=== PATIENT | male | born 1930 | race Caucasian/White ===

== ENCOUNTER 2016-09-10 14:00 | Inpatient (IN) | payer MEDICARE, BC ==
[~2016-09-10] VITALS: Ht 172.7 cm; Wt 72.5 kg
--- NOTE | ~2016-09-10 | DS ---
PATIENT'S NAME: CINDY WINKLER [facility] AGE: 86 Y [address] ROOM: [place] [address] LOCATION: [facility] ADMIT DATE: 09/16/2016 Discharge Summary DISCHARGE DATE: 09/18/2016 FAMILY PHYSICIAN: Venkat Bernstein MD ATTENDING PHYSICIAN: Benson Jaquez PRIMARY DIAGNOSIS: Degenerative joint disease of the right knee. SECONDARY DIAGNOSES: 1. Gastroesophageal reflux disease. 2. Preexisting right leg sciatica. 3. Chronic congestive heart failure. 4. Hypertension. 5. Coronary artery disease. PROCEDURE PERFORMED: Right total knee arthroplasty. HISTORY: The patient is an 86-year old male, who presents with advanced right knee degenerative joint disease and associated severely compromised activities of daily living. The patient has decided to proceed with total knee arthroplasty after having been thoroughly counseled regarding the risks, benefits, limitations, and alternatives. Please refer to the outpatient clinic notes and admission history and physical for this patient. HOSPITAL COURSE: The patient underwent a right total knee arthroplasty on 09/16/2016 without complications. Spinal anesthesia plus adductor canal block plus periarticular local anesthesia was utilized. The patient received 24 hours of perioperative prophylactic antibiotics and remained hemodynamically stable, neurovascularly intact throughout the entire hospital course. The postoperative prophylactic deep venous thrombosis prophylaxis consisted of Xarelto, early mobilization and pneumatic compression devices. Daily physical therapy for gait training, transfer training range of motion and quadriceps isometric exercises were received. The patient progressed well in physical therapy. On the date of discharge, 09/18/2016, the incision at the knee was healing well and showed no signs of infection. DISPOSITION: Home. DISCHARGE ACTIVITY: The patient is to bear weight as tolerated with range of motion and quadriceps isometric exercises as instructed. The operative extremity is to be elevated at least 90% of the day. There is to be sterile 4x4 gauze dressings to the incision daily. Dr. Jaquez is to be notified immediately if there is any increased pain, fevers, chills, erythema, or drainage. PATIENT'S NAME: CINDY WINKLER [facility] AGE: 86 Y [address] ROOM: [place] [address] LOCATION: [facility] ADMIT DATE: 09/16/2016 Discharge Summary DISCHARGE DATE: 09/18/2016 FAMILY PHYSICIAN: Venkat Bernstein MD ATTENDING PHYSICIAN: Benson Jaquez DISCHARGE MEDICATIONS: 1. Xarelto 10 mg 1 tablet p.o. daily for 12 days for postop DVT prophylaxis. 2. Oxycodone 5 mg 1 to 2 tablets p.o. every 4 hours p.r.n. for pain. 3. Diazepam 2 mg 1 tablet p.o. every night at bedtime. He is then instructed to continue all his other pre-admission medications as instructed by his internal medicine doctor. FOLLOWUP: Followup appointment is to be with VENECIA Jacob, on 09/23/2016 for his initial postoperative evaluation with x-rays of the right knee and suture removal at that time. MAHSA GARCIA PA-C FOR BENSON JAQUEZ MD SMW/modl /[id number] d: 09/24/16 0503 t: 10/12/16 1202, DISCHARGE SUMMARY
--- NOTE | ~2016-09-10 | OR ---
PATIENT'S NAME: CINDY DILLARD [facility] AGE: 86 Y [address] ROOM: [place] [address] LOCATION: [facility] ADMIT DATE: 09/16/2016 OR/Procedure Report DISCHARGE DATE: FAMILY PHYSICIAN: ELVI CHAUDHARI MD ATTENDING PHYSICIAN: BENSON JAQUEZ SURGEON: Benson Jaquez MD SKIDDER RUNNER: Marcos Perez CST/DIRECTOR MOBILE and Brian Hernandez. DATE OF PROCEDURE: 09/16/2016 PRE-OP DIAGNOSIS: Degenerative joint disease, right Knee. POST-OP DIAGNOSIS: Degenerative joint disease, right Knee. OPERATION: Right total knee arthroplasty with computer navigation. ANESTHESIA: Spinal anesthesia plus adductor canal block plus periarticular local anesthesia (ropivacaine with epinephrine and Toradol). ESTIMATED BLOOD LOSS: Less than 10 mL. DRAIN: None. SPECIMEN: None. COMPLICATIONS: None. IMPLANT SYSTEM: [place] [employer]. 1. Size 5 right posterior stabilized femoral component. 2. Size 4 universal modular tibial base plate. 3. 11 mm, posterior stabilized, size 4, X3 tibial polyethylene insert. 4. 32 mm oval X3 patella component. INDICATIONS FOR SURGERY: Cindy Dillard is an 86-year-old male who presents with advanced right knee degenerative joint disease and associated severely compromised activities of daily living. The patient has decided to proceed with knee replacement after having been thoroughly counseled regarding the associated risks, benefits, and limitations. We have specifically reviewed the risks and implications of infection, deep venous thrombosis, pulmonary embolism, mortality, neurovascular complications, blood transfusion (and associated potential for disease transmission or transfusion reaction), stiffness, instability, mechanical deterioration of the components (due to wear and or loosening), and the potential need for revision. We have also emphasized the importance of active involvement and compliance with post- operative physical therapy as a means of optimizing range of motion and PATIENT'S NAME: CINDY DILLARD [facility] AGE: 86 Y [address] ROOM: [place] [address] LOCATION: [facility] ADMIT DATE: 09/16/2016 OR/Procedure Report DISCHARGE DATE: FAMILY PHYSICIAN: ELVI CHAUDHARI MD ATTENDING PHYSICIAN: BENSON JAQUEZ functional recovery. Informed consent has been granted. DESCRIPTION OF PROCEDURE: The patient was positioned supine after administration of anesthesia and prophylactic antibiotics. A well-padded pneumatic tourniquet was placed around the right proximal thigh, and the right lower extremity was prepped and draped with vigilant sterile technique. The patient's name as well as the intended operative side and procedure were confirmed with a verbal time-out involving myself, the circulating nurse, the scrub nurse, and the anesthesiologist. Examination under anesthesia demonstrated no active skin lesions or masses. There was a moderate effusion. There was no erythema. There was no abnormal warmth. Range of motion under anesthesia was from a 5-degree flexion contracture to 130 degrees of flexion. There was no ligamentous insufficiency. The right lower extremity was elevated and exsanguinated with an Esmarch wrap, and the pneumatic tourniquet was inflated to 300mmHg. The knee was approached through a longitudinal midline incision. A medial parapatellar arthrotomy was performed and the patella was everted. Examination of the joint space demonstrated a large effusion consisting of benign-appearing translucent synovial fluid. There was generalized mildly proliferative synovitis. There was a moderate-sized popliteal cyst, which I decompressed into the joint space by dilating its point of communication with posteromedial joint capsule. There was moderate chondrocalcinosis at the patella, femoral trochlea, lateral femoral condyle, and lateral tibial plateau. There was extensive chondrocalcinosis at the medial and lateral meniscal remnants. There was extensive degenerative tearing of the medial meniscus. There was moderate inner perimeter degenerative tearing of the lateral meniscus. There was full- thickness loss of articular cartilage involving 90% of the medial femoral condyle and the anteromedial 80% of the medial tibial plateau. There were moderate-sized osteophytes at the medial femoral condyle and medial tibial plateau. There was a moderate-sized osteophyte at the superolateral margin of the femoral trochlea. There was a small osteophyte at the superior margin of the patella. There was high-grade partial-thickness articular cartilage loss extending across the equator of the patella. There were mild grade 3 degenerative changes at the femoral trochlea, lateral tibial plateau, and lateral femoral condyle. There was an 8 mm diameter region of focal full- thickness articular cartilage loss at the posterior aspect of the lateral tibial plateau. Remnants of the menisci and cruciate ligaments were excised. The [employer] navigation femoral tracker was pinned in place at the distal aspect of the femoral trochlea. Absence of motion between the femur and the tracking device was confirmed manually and visually. Femoral osseous landmarks were PATIENT'S NAME: CINDY DILLARD [facility] AGE: 86 Y [address] ROOM: [id number] [place], [place] [address] LOCATION: [facility] ADMIT DATE: 09/16/2016 OR/Procedure Report DISCHARGE DATE: FAMILY PHYSICIAN: ELVI CHAUDHARI MD ATTENDING PHYSICIAN: BENSON JAQUEZ in order to calibrate the computer navigation system. Landmarks included the center of rotation of the ipsilateral hip, the center-point of the distal femur, the femoral AP axis, 57 points on the medial femoral condyle articular surface, and 57 points on the lateral femoral condyle articular surface. The [employer] computer navigation system was subsequently utilized to position the distal femoral resection block such that the distal femoral resection was performed perfectly perpendicular to the femoral mechanical axis. The distal femoral resection was performed with a Vehrity oscillating saw. The [employer] computer navigation tibial tracker was pinned in place at the anterior aspect of the tibial plateau. Absence of motion between the tibia and the tracking device was confirmed manually and visually. Tibial osseous landmarks were obtained in order to calibrate the computer navigation system. Landmarks included the center-point of the tibial plateau, the AP tibial axis, 57 points on the medial tibial plateau articular surface, 57 points on the lateral tibial plateau articular surface, the medial malleolus, and the lateral malleolus. The [employer] computer navigation system was subsequently utilized to position the proximal tibial resection block such that the proximal tibial resection was performed perfectly perpendicular to the tibial mechanical axis. The proximal tibial resection was performed with a [place] [employer] oscillating saw. Perpendicularity of the tibial resection with respect to the tibial shaft axis was reconfirmed by inserting a spacer-block attached to an extramedullary guide lisha. External rotation of the anterior and posterior femoral resections was set parallel to the epicondylar axis and carefully adjusted in order to create a rectangular flexion gap. The box resection was performed with a reciprocating saw. Anterior and posterior chamfer resections were performed with the oscillating saw. Posterior condyle osteophytes were excised with an osteotome. All other osteophytes were excised with a rongeur. Resection of all remnants of the menisci was reconfirmed. Flexion and extension gaps were confirmed to be symmetric and well balanced with a spacer-block technique. The patella resection was performed with an oscillating saw such that the composite thickness of the reconstructed patella was equivalent to the thickness of the [place] patella. Patella tracking was optimal, and there was no need for a lateral retinacular release. All trial components were removed and all prepared osseous surfaces were thoroughly irrigated with pulsatile saline lavage and dried prior to cementing all three components in a single stage using Maureen Simplex cement containing pre-mixed tobramycin. All extruded excess cement was removed. The entire joint space was thoroughly inspected and thoroughly irrigated with bacteriostatic pulsatile saline lavage to assure that there was no residual debris of any PATIENT'S NAME: CINDY DILLARD [facility] AGE: 86 Y [address] ROOM: [address] [address] LOCATION: [facility] ADMIT DATE: 09/16/2016 OR/Procedure Report DISCHARGE DATE: FAMILY PHYSICIAN: ELVI CHAUDHARI MD ATTENDING PHYSICIAN: BENSON JAQUEZ. Final range of motion was from a full extension (with no passive hyperextension) to 130 degrees of flexion. Patella tracking was reconfirmed to be optimal. There was very good anteroposterior stability at 90 degrees of flexion. There was less than 1 mm of medial lift-off to valgus stress in full extension. There was 1 mm of lateral lift-off to varus stress in full extension. The arthrotomy was closed with multiple simple and [id number] interrupted #1 Vicryl. Subcutaneous tissues were thoroughly re-irrigated with bacteriostatic pulsatile saline lavage. Subcutaneous tissues were re- approximated with simple buried interrupted #0 Vicryl sutures. The skin was closed with simple buried interrupted 2-0 Vicryl sutures followed by surgical chano. The dressing consisted of Xeroform gauze, 4x4 gauze, ABD pads and two 6-inch Mian Wraps. There were no intra-operative complications. MD LORENZO HENDRIX/david /[id number] d: 09/16/16 0949 t: 09/21/16 1006, OPERATIVE SUMMARY
[2016-09-10] MEDS ORDERED: PROTONIX20 MG PO (14:27)
[2016-09-10] MEDS ORDERED: BENTYL10 MG PO (14:27)
[2016-09-10] MEDS ORDERED: WELCHOL 625MG625 MG PO (14:27)
[2016-09-10] MEDS ORDERED: PRINIVIL OR ZES10 MG PO (14:28)
[2016-09-10] MEDS ORDERED: PRESERVISION A1 EAC2 PO (14:28)
[2016-09-10] MEDS ORDERED: ASPIRIN325 MG PO (14:28)
[2016-09-10] MEDS ORDERED: TENORMIN25 MG PO (14:28)
[2016-09-10] MEDS ORDERED: STOOL SOFTENER100 MG PO (14:29)
[2016-09-10] MEDS ORDERED: TYLENOL EXTRA500 MG PO (14:29)
[2016-09-10] MEDS ORDERED: VALIUM2 MG PO (14:29)
[2016-09-10] MEDS ORDERED: AMOXICILLIN500 M1 PO (14:43)
[2016-09-18] MEDS ORDERED: COLACE100 MG PO (11:09)
[2016-09-18] MEDS ORDERED: MIRALAX17 GM PO (11:11)
[2016-09-18] MEDS ORDERED: XARELTO10 MG PO (11:12)
[2016-09-18] MEDS ORDERED: ROXICODONE 5MG (5 MG PO (11:15)
== END 2016-09-18 17:35 | disposition disaster alternative care site (69) | DRG 470 ==
LOC: G3N 09-16 05:04
PROVIDERS: ADMIT Orthopaedic Surgery
PROC: 0SRC0J9 Replacement of Right Knee Joint with Synthetic Substitute, Cemented, Open Approach (ICD-10-PCS; principal; 2016-09-16)
DX: M17.11 Unilateral primary osteoarthritis, right knee (principal); I10 Essential (primary) hypertension; K21.9 Gastro-esophageal reflux disease without esophagitis; F41.9 Anxiety disorder, unspecified; Z96.652 Presence of left artificial knee joint; Z79.82 Long term (current) use of aspirin; I25.2 Old myocardial infarction
CPT/HCPCS: A9270; C1713; C1776; J0690; J1100; J1885; J2001; J2250; J2405; J2795; J7030; J7120

== ENCOUNTER → 2016-09-12 | Outpatient (CLI) | payer MEDICARE, BC ==
[~2016-09-12] MED LIST: AMOXICILLIN500 M1 PO; ASPIRIN325 MG PO; BENTYL10 MG PO; COLACE100 MG PO; MIRALAX17 GM PO; PRESERVISION A1 EAC2 PO; PRINIVIL OR ZES10 MG PO; PROTONIX20 MG PO; ROXICODONE 5MG (5 MG PO; STOOL SOFTENER100 MG PO; TENORMIN25 MG PO; TYLENOL EXTRA500 MG PO; VALIUM2 MG PO; WELCHOL 625MG625 MG PO; XARELTO10 MG PO
== END | disposition disaster alternative care site (69) ==
LOC: GNJRC 10:15
DX: Z01.812 Encounter for preprocedural laboratory examination (principal); M17.11 Unilateral primary osteoarthritis, right knee